=== PATIENT | male | born 1995 | race Hispanic/Latino ===

== ENCOUNTER 2024-09-07 10:53 | Emergency (ER) | payer SELFPAY ==
[2024-09-07 11:50] VITALS: BP 152/69; PULSE 66; RESP 18; TEMP 36.6; O2SAT 99; BMI 48.0
[2024-09-07 12:24] LABS: Strep Grp A by PCR Rapid Negative (Negative)
--- NOTE | 2024-09-07 13:52 | ED.URI ---
HPI - URI/Sore Throat General Chief Complaint: Upper Respiratory Symptoms Stated Complaint: Sore throat (+7days), painful to swallow Time Seen by Provider: 09/07/24 11:04 Source: patient Mode of arrival: Ambulatory History of Present Illness HPI Narrative: 29-year-old gentleman presents with sore throat over the past week unrelieved with NyQuil and Tylenol. Patient denies fever, chills, body aches, nausea, vomiting, diarrhea, cough, sinus congestion, or earache. Patient denies any sick contacts. Able to drink and eat with no difficulty. Other than what is stated 14 point review of system is negative. Related Data Previous Rx's ?Medication ?Instructions ?Recorded prednisone 20 mg tablet 20 mg PO BID #10 tabs 09/07/24 prednisone 20 mg tablet 20 mg PO BID #10 tabs 09/07/24 Allergies Allergy/AdvReac Type Severity Reaction Status Date / Time No Known Drug Allergies Allergy Verified 09/07/24 11:50 Review of Systems Review of Systems ROS Unobtainable: All systems reviewed & are unremarkable except as noted in HPI and below Patient History Smoking Status: Never smoker Exam Narrative Exam Narrative: GENERAL: [29] year old patient appears stated age. Well-developed patient, in mild distress. HEAD: Atraumatic. Normocephalic. EYES: Pupils equal round and reactive. Extraocular motions intact. No scleral icterus. No injection or drainage. ENT: Nose without bleeding, purulent drainage. Throat without erythema, tonsillar hypertrophy or exudate. Airway patent. NECK: Trachea midline. Non tender CARDIOVASCULAR: Regular rate and rhythm without murmurs, gallops, or rubs. RESPIRATORY: Clear to auscultation. Breath sounds equal bilaterally. No wheezes, rales, or rhonchi. EXTREMITIES: No edema or joint tenderness. BACK: Nontender without deformity or crepitance. No flank tenderness. NEURO: AOx3. SKIN: No rash or erythema of visible areas Initial Vital Signs Initial Vital Signs: Vital Signs Temperature 97.8 F 09/07/24 11:50 Pulse Rate 66 09/07/24 11:50 Respiratory Rate 18 09/07/24 11:50 Blood Pressure 152/69 H 09/07/24 11:50 Pulse Oximetry 99 09/07/24 11:50 Oxygen Delivery Method Room Air 09/07/24 11:50 Course Orders Ordered: ED Orders 09/07/24 11:55 Strep Grp A by PCR Rapid Stat Throat Culture Stat 09/07/24 13:49 Covid-19 + FLU A/B + RSV - PCR Stat Vital Signs Vital signs: Vital Signs - 8 hr 09/07/24 11:50 Temperature 97.8 F Pulse Rate 66 Respiratory Rate 18 Blood Pressure 152/69 H Pulse Oximetry 99 Oxygen Delivery Method Room Air MDM - URI/Sore Throat Lab Data Labs: Lab Results 09/07/24 Range/Units 11:55 Group A Strep (PCR) Negative (Negative) MDM Narrative Medical decision making narrative: Vital signs, nurse triage note, medication list, previous ER visits, an all imaging studies reviewed. Strep negative. Differential diagnosis includes COVID flu RSV strep mono. DC home on prednisone and to keep hydrated. Return with new or worsening symptoms. Discharge Plan Departure Patient Disposition: Home Clinical Impression: Viral infection Instructions: DI for Viral Upper Respiratory Infection -- Adult Activity Restrictions/Additional Instructions: Return with new or worsening symptoms. Take your medicine as directed. Follow up PCP in 1-2 weeks if no improvement in symptoms. Prescriptions: New prednisone 20 mg tablet 20 mg PO BID Qty: 10 0RF prednisone 20 mg tablet 20 mg PO BID Qty: 10 0RF Stand Alone Forms: Patient Portal/API
[2024-09-07 14:15] VITALS: BP 138/68; PULSE 70; RESP 16; O2SAT 99
[2024-09-07 14:33] LABS: Influenza A - CEPHEID Flu A NEGATIVE (NEGATIVE); Influenza B - CEPHEID Flu B NEGATIVE (NEGATIVE)
[2024-09-07 14:36] LABS: COVID-19 CEPHEID 4-PLEX PCR Negative (Negative)
== END 2024-09-07 14:16 | disposition home or self-care (01) ==
PROVIDERS: Emergency Provider Family Medicine
DX: B34.9 Viral infection, unspecified (principal)
CPT/HCPCS: 87070; 87637; 87651; 99283